=== PATIENT | female | born 1975 | race Caucasian/White ===

== ENCOUNTER 2020-04-04 20:35 | Emergency (ER) | payer OTHER, MEDICAID, SELFPAY ==
[2020-04-04 21:05] VITALS: BP 152/86; PULSE 77; RESP 15; TEMP 36.4; O2SAT 100; BMI 22.3
== END 2020-04-04 21:44 | disposition left against medical advice (07) ==
PROVIDERS: Emergency Provider Internal Medicine
DX: R10.9 Unspecified abdominal pain (principal)
CPT/HCPCS: 99282

== ENCOUNTER 2020-05-02 10:58 | Emergency (ER) | payer OTHER, MEDICAID, SELFPAY ==
[2020-05-02 11:14] VITALS: BP 117/76; PULSE 93; RESP 16; TEMP 36.6; O2SAT 97; BMI 22.3
--- NOTE | 2020-05-02 11:42 | XR_ITS ---
EXAMINATION: XR CHEST CLINICAL INFORMATION: Chest pain. Positive Covid COMPARISON: None TECHNIQUE: Frontal view of the chest was obtained. FINDINGS: The lungs are expanded with patchy groundglass opacities in both lower lobes and bilateral midlung regions suggestive of infiltrates. The upper lungs are clear. The heart size and pulmonary vascularity is normal. No gross bony abnormality seen. XR/XR chest 1V IMPRESSION: Patchy groundglass opacities in both lower lobes and bilateral midlung regions suggestive of infiltrates.
--- NOTE | 2020-05-02 11:42 | ECG_ITS ---
Test Reason : COVID+ DYSPNEA Blood Pressure : / mmHG Vent. Rate : 083 BPM Atrial Rate : 083 BPM P-R Int : 142 ms QRS Dur : 078 ms QT Int : 378 ms P-R-T Axes : 076 041 048 degrees QTc Int : 444 ms Normal sinus rhythm Normal ECG No previous ECGs available Referred By: Bin Juan Electronically Signed By:MARTA LA MD
[2020-05-02 12:00] VITALS: BP 122/78; PULSE 97; RESP 18; TEMP 36.6; O2SAT 99
[2020-05-02 12:30] LABS: MANUAL DIFF FLAG NO
--- NOTE | 2020-05-02 12:32 | ED_ITS ---
HPI - URI/Sore Throat General Chief Complaint: Upper Respiratory Symptoms Stated Complaint: covid+ diff breathing Time Seen by Provider: 05/02/20 11:41 Source: patient Mode of arrival: ambulatory Limitations: no limitations History of Present Illness HPI Narrative: States had positive COVID on April 23 has had URI symptoms which somewhat improved and then she developed body aches and cough with associated chest wall pain and tightness. MD elicited complaint: cough, rhinorrhea and nasal congestion Consistency: intermittent Severity: moderate Relieving factors: nothing Treatments prior to arrival: none Related Data Previous Rx's Medication Instructions Recorded albuterol sulfate 2 puff INHALATION Q4-6H PRN #8.5 g 05/02/20 azithromycin [Zithromax Z-Femi] 250 mg PO DAILY 5 Days #6 tab 05/02/20 prednisone 40 mg PO DAILY 5 Days #10 tab 05/02/20 Allergies Allergy/AdvReac Type Severity Reaction Status Date / Time No Known Allergies Allergy Verified 05/02/20 11:19 [No Known Allergies*] Review of Systems Review of Systems: Constitutional: No Weight loss, No Fever, positive Chills, No Night Sweats, No Fatigue, No Malaise ENT/Mouth: No Hearing loss, No Ear Pain, positive Nasal Congestion, No Sinus Pain, No Hoarseness, No sore throat, positive Rhinorrhea, No Swallowing Difficulty Eyes: No Eye Pain, No Swelling, No Redness, No Foreign Body, No Discharge, No Vision Changes Cardiovascular: No SOB, No Dyspnea on Exertion, No Orthopnea, No Edema, No Palpitations Respiratory: Positive Cough with associated chest wall pain, No Sputum, No Wheezing, No Smoke Exposure, No Dyspnea Gastrointestinal: No Nausea, No Vomiting, No Diarrhea, No Constipation, No abdominal Pain, No Hematochezia, No Melena Genitourinary: no irregular bleeding, No Dysuria, No Urinary Frequency, No Hematuria, No Urinary Incontinence, No Urgency, No Flank Pain, No Urinary Flow Changes, No Hesitancy Musculoskeletal: No joint pain, No Myalgias, No Joint Swelling Skin: No Skin Lesions, No rash Neuro: No Weakness, No Numbness, No Paresthesias, No Loss of Consciousness, No Dizziness, No Headache Psych: No Anxiety/Panic, No Depression, No SI/HI/AH/VH, No Social Issues, Heme/Lymph: No Bruising, No Bleeding,No Lymphadenopathy Endocrine: No Polyuria, No Polydipsia, No Temperature Intolerance Yes all other systems are reviewed and are negative [facility] Past Medical History Medical History (Updated 05/03/20 @ 00:01 by Christian Chaves) Anxiety Social History Social History Advance Directives: No Advance Directives Information Provided: No Physical Exam Vital Signs: Vital Signs: Last Vital Signs Temp 98 F 05/02/20 12:00 Pulse 97 05/02/20 12:00 Resp 18 05/02/20 12:00 BP 122/78 05/02/20 12:00 Pulse Ox 99 05/02/20 12:00 Body Mass Index 22.3 Reviewed Const: General: cooperative and healthy appearing; No acute distress or intoxicated appearing Nutritional Appearance: average body habitus Orientation/consciousness: patient oriented x3 HENMT: Head: Yes normal to inspection Ears: hearing grossly normal bilaterally Eyes: General: appearance normal, both eyes and all related structures Visual Guerra: normal visual guerra by confrontation Neck: Neck: Yes normal visual inspection, No positive Brudzinski's sign, No positive Kernig's sign and No tender Thyroid: Thyroid normal Chest: Chest palpation & inspection: normal inspection of the chest Resp: Other: Fits of dry bronchial cough Effort & Inspection: normal respiratory effort Auscultation: clear to auscultation bilaterally Cardio: Jugular venous distension: no JVD Rhythm: regular rhythm Heart sounds: S1 normal heart sound present and S2 normal heart sound present GI: Inspection: Yes normal to inspection Percussion: Yes normal to percussion Auscultation: normal bowel sounds : General: Yes no CVA tenderness Back/Spine/Pelvis: Back: no CVA tenderness Skin: General skin exam: no rashes or lesions noted Neuro: General: patient oriented x3 Extrem: General: Yes normal to inspection MDM - URI/Sore Throat MDM Narrative Medical decision making narrative: Feels better after neb. Ambulatory steady gait with pulse ox 100% on room air. Nontoxic appearing. Afebrile. With discharge with supportive care return follow-up instructions. Stable for discharge. Differential Diagnosis Differential diagnosis: Likely upper respiratory infection, viral infection (COVID-19, pneumonia), bronchitis and influenza; Unlikely croup, otitis media, sinusitis and pharyngitis Medical Records Attestation: I reviewed the patient's medical records. Lab Data Attestation: I reviewed the patient's lab results. Result diagrams: 05/02/20 12:22 05/02/20 12:22 Labs: Lab Results 05/02/20 05/02/20 05/02/20 Range/Units 12:22 12:22 12:22 WBC 6.7 (4.8-10.8) X10*3/uL RBC 4.05 L (4.20-5.50) X10*6/uL Hgb 12.4 (12.0-16.0) g/dl Hct 37.5 (37-47) % MCV 92.6 (80-98) fL MCH 30.6 (27.0-33.0) pg MCHC 33.1 (31.0-35.0) g/dl RDW 11.9 (11.0-16.0) % Plt Count 291 (160-400) X10*3/uL MPV 8.9 L (9.4-12.3) fL Immature Gran % (Auto) 0.6 H (0.0-0.4) % Neut % (Auto) 73.0 (45-73) % Lymph % (Auto) 17.3 L (20-40) % Gu[place]upe % (Auto) 7.5 (2-11) % Eos % (Auto) 1.3 (0-4) % Baso % (Auto) 0.3 (0-2) % Lymph # (Auto) 1.2 (1.2-4.9) X10*3/uL [place] # (Auto) 0.5 (0.1-1.2) X10*3/uL Eos # (Auto) 0.1 (0.0-0.4) X10*3/uL Baso # (Auto) 0.0 (0.0-0.2) X10*3/uL Abs Immat Gran (auto) 0.04 H (0.00-0.03) X10*3/uL Absolute Neuts (auto) 4.9 (2.0-8.3) X10*3/uL Absolute Nucleated RBC 0.000 (0.0-0.012) X10*3/uL Nucleated RBC % (auto) 0.0 (0.0-0.2) /100WBC PT 13.7 H (10.8-13.0) SEC INR 1.2 H (0.9-1.1) APTT 31.4 (24.1-38.0) SEC D-Dimer 253 NG/ML Sodium 138 (135-145) mmol/L Potassium 3.8 (3.3-5.1) mmol/L Chloride 104 (96-108) mmol/L Carbon Dioxide 25 (22-29) mmol/L Anion Gap 13 (12-20) BUN 11 (9-16) mg/dL Creatinine 0.77 (0.5-1.4) mg/dL Estim Creat Clear Calc 82.1 Estimated GFR > 60 Random Glucose 84 (60-115) mg/dL Calcium 8.5 (8.4-10.2) mg/dL Total Bilirubin 0.3 (0.0-1.0) mg/dL AST 17 (5-31) U/L ALT 17 (0-31) U/L Alkaline Phosphatase 107 (39-117) U/L Troponin I High Sens (<3.5-17.0) ng/L Total Protein 6.9 (6.5-8.0) g/dL Albumin 4.0 (3.5-5.0) g/dL 05/02/20 Range/Units 12:22 WBC (4.8-10.8) X10*3/uL RBC (4.20-5.50) X10*6/uL Hgb (12.0-16.0) g/dl Hct (37-47) % MCV (80-98) fL MCH (27.0-33.0) pg MCHC (31.0-35.0) g/dl RDW (11.0-16.0) % Plt Count (160-400) X10*3/uL MPV (9.4-12.3) fL Immature Gran % (Auto) (0.0-0.4) % Neut % (Auto) (45-73) % Lymph % (Auto) (20-40) % [place] % (Auto) (2-11) % Eos % (Auto) (0-4) % Baso % (Auto) (0-2) % Lymph # (Auto) (1.2-4.9) X10*3/uL [place] # (Auto) (0.1-1.2) X10*3/uL Eos # (Auto) (0.0-0.4) X10*3/uL Baso # (Auto) (0.0-0.2) X10*3/uL Abs Immat Gran (auto) (0.00-0.03) X10*3/uL Absolute Neuts (auto) (2.0-8.3) X10*3/uL Absolute Nucleated RBC (0.0-0.012) X10*3/uL Nucleated RBC % (auto) (0.0-0.2) /100WBC PT (10.8-13.0) SEC INR (0.9-1.1) APTT (24.1-38.0) SEC D-Dimer NG/ML Sodium (135-145) mmol/L Potassium (3.3-5.1) mmol/L Chloride (96-108) mmol/L Carbon Dioxide (22-29) mmol/L Anion Gap (12-20) BUN (9-16) mg/dL Creatinine (0.5-1.4) mg/dL Estim Creat Clear Calc Estimated GFR Random Glucose (60-115) mg/dL Calcium (8.4-10.2) mg/dL Total Bilirubin (0.0-1.0) mg/dL AST (5-31) U/L ALT (0-31) U/L Alkaline Phosphatase (39-117) U/L Troponin I High Sens < 3.5 (<3.5-17.0) ng/L Total Protein (6.5-8.0) g/dL Albumin (3.5-5.0) g/dL Imaging Data Chest x-ray: Radiologist's impression: [address] [id number] ReportSigned Patient: Nora Stewart MMR#: [id number]: 0 [id number]:[id number]/Sex: 44 / FADM Date: 05/02/20Loc: [address] Dr: Ordering Physician: Bin Juan NP Date of Service: 05/02/20 Procedure(s): XR chest 1V Accession Number(s): [id number] cc: Bin Juan EVENT SECURITY OFFICER~ EXAMINATION: XR CHEST CLINICAL INFORMATION: Chest pain. Positive Covid COMPARISON: None TECHNIQUE: Frontal view of the chest was obtained. FINDINGS: The lungs are expanded with patchy groundglass opacities in both lower lobes and bilateral midlung regions suggestive of infiltrates. The upper lungs are clear. The heart size and pulmonary vascularity is normal. No gross bony abnormality seen. XR/XR chest 1V IMPRESSION: Patchy groundglass opacities in both lower lobes and bilateral midlung regions suggestive of infiltrates. Dictated By:VIKA AMARO MDSigned By:<Electronically signed by VIKA AMARO MD in OV>05/02/20 1221 DD/ 1142TD/TT: [employer] [facility] [place] Discharge Clinical Impression: COVID-19, Bronchitis Patient Disposition: Home, Self-Care Instructions: Acute Bronchitis (ED), COVID-19 (Coronavirus Disease 2019) (ED) Additional Instructions: Drink plenty of fluids Take medication prescribed Self-isolation/discussing Quarantine Remain out of work until cleared by [facility] to return to work Return to emergency room if any concerns or worsening symptoms Thank you Prescriptions: New albuterol sulfate 90 mcg/actuation HFA aerosol inhaler 2 puff inhalation Q4-6H PRN (Reason: shortness of breath or wheezing) Qty: 8.5 RF: 0 azithromycin [Zithromax Z-Femi] 250 mg tablet 250 mg PO DAILY 5 Days Qty: 6 RF: 0 prednisone 20 mg tablet 40 mg PO DAILY 5 Days Qty: 10 RF: 0 Referrals: ED Physician,Generic [Physician] - 2 days Stand Alone Forms: Work/School Release Interventions: ED Discharge Assessment Last Done: 05/02/20 13:48 Discharge Date/Time: 05/02/20 13:49
[2020-05-02 12:33] LABS: Basophils Percent Auto 0.3 % (0-2); Eosinophils Absolute Auto 0.1 X10*3/uL (0.0-0.4); Eosinophils Percent Auto 1.3 % (0-4); Hematocrit 37.5 % (37-47); Hemoglobin 12.4 g/dl (12.0-16.0); Imm Gran Abs Auto 0.04 X10*3/uL (0.00-0.03); Imm Gran Pct Auto 0.6 % (0.0-0.4); Lymphocytes Absolute Auto 1.2 X10*3/uL (1.2-4.9); Lymphocytes Percent Auto 17.3 % (20-40); Mean Corpuscular HGB Conc 33.1 g/dl (31.0-35.0); Mean Corpuscular Hemoglobin 30.6 pg (27.0-33.0); Mean Corpuscular Volume 92.6 fL (80-98); Mean Platelet Volume 8.9 fL (9.4-12.3); Monocytes Absolute Auto 0.5 X10*3/uL (0.1-1.2); Monocytes Percent Auto 7.5 % (2-11); Neutrophils Absolute Auto 4.9 X10*3/uL (2.0-8.3); Platelet Count 291 X10*3/uL (160-400); Red Blood Count 4.05 X10*6/uL (4.20-5.50); Red Cell Distribution Width 11.9 % (11.0-16.0); White Blood Count 6.7 X10*3/uL (4.8-10.8)
[2020-05-02 12:47] LABS: INTERNATIONAL NORM RATIO 1.2 (0.9-1.1); Prothrombin Time 13.7 SEC (10.8-13.0)
[2020-05-02 12:50] LABS: D Dimer 253 NG/ML; Partial Thromboplastin Time 31.4 SEC (24.1-38.0)
[2020-05-02 12:59] LABS: Alanine Aminotransferase 17 U/L (0-31); Alkaline Phosphatase 107 U/L (39-117); Anion Gap 13 (12-20); Aspartate Amino Transferase 17 U/L (5-31); Bilirubin Total 0.3 mg/dL (0.0-1.0); Blood Urea Nitrogen 11 mg/dL (9-16); Calcium 8.5 mg/dL (8.4-10.2); Carbon Dioxide 25 mmol/L (22-29); Chloride 104 mmol/L (96-108); Creatinine Clr Calc Pharmacy 82.1; Estimated Glomerular Filt Rate > 60; Glucose Random 84 mg/dL (60-115); Potassium 3.8 mmol/L (3.3-5.1); Sodium 138 mmol/L (135-145); Total Protein 6.9 g/dL (6.5-8.0)
[2020-05-02 13:03] LABS: Troponin-I High Sensitivity < 3.5 ng/L (<3.5-17.0)
== END 2020-05-02 13:49 | disposition home or self-care (01) ==
PROVIDERS: Nurse Practitioner Primary Care; Emergency Provider Emergency Medicine
DX: U07.1 COVID-19 (principal); J40 Bronchitis, not specified as acute or chronic; Z79.899 Other long term (current) drug therapy
CPT/HCPCS: 36415; 71045; 80053; 84484; 85025; 85379; 85610; 85730; 93005; 99283

== ENCOUNTER 2020-06-13 13:51 | Emergency (ER) | payer OTHER, MEDICAID, SELFPAY ==
--- NOTE | ~2020-06-13 | XR_ITS ---
EXAMINATION: XR CHEST CLINICAL INFORMATION: Dyspnea, Covid in April COMPARISON: 05/02/2020 TECHNIQUE: 2 views of the chest were obtained. FINDINGS: Normal cardiomediastinal silhouette. Adequate expansion of lungs. No focal consolidation. Interval resolution of previously seen patchy airspace opacities. No pleural effusion or pneumothorax. No acute osseous abnormality. XR/XR chest 2V IMPRESSION: No acute disease within the chest.
[2020-06-13 14:24] VITALS: BP 155/106; PULSE 109; RESP 18; TEMP 36.6; O2SAT 98; BMI 23.3
--- NOTE | 2020-06-13 14:44 | ECG_ITS ---
Test Reason : SOB Blood Pressure : / mmHG Vent. Rate : 098 BPM Atrial Rate : 098 BPM P-R Int : 144 ms QRS Dur : 076 ms QT Int : 370 ms P-R-T Axes : 078 056 069 degrees QTc Int : 472 ms Normal sinus rhythm Possible Left atrial enlargement Borderline ECG When compared with ECG of 02-MAY-2020 12:14, No significant change was found Referred By: Gail Gerard Electronically Signed By:MARTA LA MD
--- NOTE | 2020-06-13 14:47 | ED.SOB ---
HPI - SOB/Dyspnea General Chief Complaint: Dyspnea Stated Complaint: SOB Time Seen by Provider: 06/13/20 14:29 Source: patient Mode of arrival: ambulatory History of Present Illness HPI Narrative: 44 y.o. F with PMH of anxiety presenting to the ED with SOB. Pt. states she was COVID positive on Apr 23, was seen in the ED and given rx for prednisone, albuterol and azithromycin. She had a follow up with her PCP a week later and had a repeat CXR which did not show improvement, so given inhaled steroids with albuterol and doxycyline. SHe has a follow up CXR on 06/25 but states she cannot wait until then. Recently her symptoms worsened, feeling SOB, fatigued, having no energy, chest pressure. Pressure initially was underneath her left breast and now is also on the right side. She was planning on going out to eat with her and two children (ages 6,7) but could not finish putting on makeup without having to sit down because of the SOB. SHe had a low grade fever of 100.2 on Sunday and took alieve, no recurrences. SHe denies abd pain, vomiting, diarrhea, leg swelling. No hx of DVT/PE. Nonsmoker. MD elicited complaint: shortness of breath Related Data Previous Rx's Medication Instructions Recorded albuterol sulfate 2 puff INHALATION Q4-6H PRN #8.5 g 05/02/20 azithromycin [Zithromax Z-Femi] 250 mg PO DAILY 5 Days #6 tab 05/02/20 prednisone 40 mg PO DAILY 5 Days #10 tab 05/02/20 Allergies Allergy/AdvReac Type Severity Reaction Status Date / Time No Known Allergies Allergy Verified 05/02/20 11:19 [No Known Allergies*] Review of Systems Constitutional: Constitutional: Reports fatigue and Reports fever(s) Eyes: Eyes: Reports no additional eye complaints ENT: Denies sore throat Cardiovascular: Cardiovascular: Reports chest pain, Denies syncope, Reports dyspnea and Reports dyspnea on exertion Respiratory: Respiratory: Reports dyspnea and Reports dyspnea on exertion Gastrointestinal: Gastrointestinal: Denies abdominal pain, Denies diarrhea and Denies vomiting Genitourinary: Comments: no dysuria or hematuria Musculoskeletal: Musculoskeletal: Reports no additional musculoskeletal complaints Neurologic: Denies syncope Psychiatric: Psychiatric: Reports anxiety Endocrine: Endocrine: Reports fatigue Hematologic/Lymphatic: Hematologic/Lymphatic: Denies easy bleeding and Denies easy bruising Allergic/Immunologic: Allergic/Immunologic: Reports no additional allergic/immunologic complaints [facility] Past Medical History Medical History Anxiety Social History Social History Alcohol intake: never Smoked in Last 30 Days: No Use of substances other than those prescribed or required for medical reasons: No Advance Directives: No Advance Directives Information Provided: No Physical Exam Vital Signs: Vital Signs: Last Vital Signs Temp 97.5 F 06/13/20 16:22 Pulse 96 06/13/20 16:22 Resp 18 06/13/20 16:22 BP 146/95 H 06/13/20 16:22 Pulse Ox 97 06/13/20 16:22 Body Mass Index 23.3 Const: Other: sitting upright, very anxious HENMT: Head: Yes atraumatic Eyes: Pupils: Equal, round and reactive pupils present Neck: Neck: Yes trachea midline and Yes supple Chest: Chest palpation & inspection: normal inspection of the chest Resp: Effort & Inspection: normal respiratory effort and able to speak in complete sentences Auscultation: clear to auscultation bilaterally Cardio: Other: no peripheral edema Rate: regular rate Rhythm: regular rhythm GI: Inspection: No distended Palpation (GI): Soft to palpation and nontender Back/Spine/Pelvis: Other: full ROM Skin: Other: warm Rashes: no rashes Neuro: Other: A&O x4 General: gait normal Cranial nerves: Yes Equal, round and reactive pupils present Extrem: General: Yes normal to inspection Psych: Appearance: well kempt Course Course Course Narrative: Tachycardia resolved, BP remains elevated pt. states this is due to her anxiety. Her labs are unremarkable including d dimer, troponin and BNP. CXR is negative. I discussed these results with her. Could be due to post COVID. WIll encourage PCP follow up. She has albuterol inhaler at home, instructed to use this. Pt. feels comfortable with this discharge plan. MDM - SOB/Dyspnea MDM Narrative Medical decision making narrative: 44 y.o. F presenting to the ED with CP and SOB, COVID positive in April VS significant for hypertension, tachycardia 109, not toxic appearing, hemodynamically stable WIll plan for basic labs to assess for leukocytosis, anemia, renal dysfunction. WIll check for electrolyte abnormalities, including Ca, Mg level. Will evaluate BNP level, however no dyspnea on exam, no peripheral edema. Will check troponin for possible myositis, ACS. ACS less likely since her HEART score is low, risk factor is familial history (provides broad cardiac history on her paternal side), pt. is a nonsmoker. PE considered given her COVID exposure will send for d dimer. No limb swelling to suggest DVT, will defer US. WIll check CXR for pleural effusion, PNA. Abdomen is soft, nontender, not peritonitic. Will monitor on the cardiac monitor technician case discussed with Dr. Alcocer Lab Data Result diagrams: 06/13/20 15:00 06/13/20 15:00 Labs: Lab Results 06/13/20 06/13/20 06/13/20 Range/Units 15:00 15:00 15:00 WBC 9.1 (4.8-10.8) X10*3/uL RBC 4.20 (4.20-5.50) X10*6/uL Hgb 13.0 (12.0-16.0) g/dl Hct 38.7 (37-47) % MCV 92.1 (80-98) fL MCH 31.0 (27.0-33.0) pg MCHC 33.6 (31.0-35.0) g/dl RDW 13.0 (11.0-16.0) % Plt Count 317 (160-400) X10*3/uL MPV 9.1 L (9.4-12.3) fL Immature Gran % (Auto) 0.1 (0.0-0.4) % Neut % (Auto) 73.4 H (45-73) % Lymph % (Auto) 18.0 L (20-40) % Baldwin % (Auto) 4.2 (2-11) % Eos % (Auto) 4.0 (0-4) % Baso % (Auto) 0.3 (0-2) % Lymph # (Auto) 1.6 (1.2-4.9) X10*3/uL Baldwin # (Auto) 0.4 (0.1-1.2) X10*3/uL Eos # (Auto) 0.4 (0.0-0.4) X10*3/uL Baso # (Auto) 0.0 (0.0-0.2) X10*3/uL Abs Immat Gran (auto) 0.01 (0.00-0.03) X10*3/uL Absolute Neuts (auto) 6.7 (2.0-8.3) X10*3/uL Absolute Nucleated RBC 0.000 (0.0-0.012) X10*3/uL Nucleated RBC % (auto) 0.0 (0.0-0.2) /100WBC D-Dimer < 200 NG/ML Sodium 137 (135-145) mmol/L Potassium 3.8 (3.3-5.1) mmol/L Chloride 103 (96-108) mmol/L Carbon Dioxide 25 (22-29) mmol/L Anion Gap 13 (12-20) BUN 12 (9-16) mg/dL Creatinine 0.78 (0.5-1.4) mg/dL Estim Creat Clear Calc 81.1 Estimated GFR > 60 Random Glucose 105 (60-115) mg/dL Calcium 9.3 D (8.4-10.2) mg/dL Magnesium 1.9 (1.6-2.6) mg/dL Troponin I High Sens (<3.5-17.0) ng/L B-Natriuretic Peptide (<100) pg/mL 06/13/20 Range/Units 15:01 WBC (4.8-10.8) X10*3/uL RBC (4.20-5.50) X10*6/uL Hgb (12.0-16.0) g/dl Hct (37-47) % MCV (80-98) fL MCH (27.0-33.0) pg MCHC (31.0-35.0) g/dl RDW (11.0-16.0) % Plt Count (160-400) X10*3/uL MPV (9.4-12.3) fL Immature Gran % (Auto) (0.0-0.4) % Neut % (Auto) (45-73) % Lymph % (Auto) (20-40) % Baldwin % (Auto) (2-11) % Eos % (Auto) (0-4) % Baso % (Auto) (0-2) % Lymph # (Auto) (1.2-4.9) X10*3/uL Baldwin # (Auto) (0.1-1.2) X10*3/uL Eos # (Auto) (0.0-0.4) X10*3/uL Baso # (Auto) (0.0-0.2) X10*3/uL Abs Immat Gran (auto) (0.00-0.03) X10*3/uL Absolute Neuts (auto) (2.0-8.3) X10*3/uL Absolute Nucleated RBC (0.0-0.012) X10*3/uL Nucleated RBC % (auto) (0.0-0.2) /100WBC D-Dimer NG/ML Sodium (135-145) mmol/L Potassium (3.3-5.1) mmol/L Chloride (96-108) mmol/L Carbon Dioxide (22-29) mmol/L Anion Gap (12-20) BUN (9-16) mg/dL Creatinine (0.5-1.4) mg/dL Estim Creat Clear Calc Estimated GFR Random Glucose (60-115) mg/dL Calcium (8.4-10.2) mg/dL Magnesium (1.6-2.6) mg/dL Troponin I High Sens < 3.5 (<3.5-17.0) ng/L B-Natriuretic Peptide 25 (<100) pg/mL ECG Data Attestation: I personally reviewed and interpreted this ECG as follows: Prior ECG tracings: available for review Interpretation: rate [address] elevation QTC 472 no STEMI Discharge Plan Discharge Clinical Impression: Dyspnea Patient Disposition: Home, Self-Care Instructions: Dyspnea (ED) Additional Instructions: Please call your doctor tomorrow to discuss today's visit. Please return to the emergency department if your symptoms worsen, increased trouble breathing, chest pain, abdominal pain, leg swelling, dizziness, weakness, fevers, or any other concerning symptoms. Continue using your albuterol inhaler as scheduled for your breathing. Your blood tests today including a troponin, BNP, d dimer were all normal. Your chest xray was normal. Prescriptions: No Action albuterol sulfate 90 mcg/actuation HFA aerosol inhaler 2 puff inhalation Q4-6H PRN (Reason: shortness of breath or wheezing) Qty: 8.5 RF: 0 azithromycin [Zithromax Z-Femi] 250 mg tablet 250 mg PO DAILY 5 Days Qty: 6 RF: 0 prednisone 20 mg tablet 40 mg PO DAILY 5 Days Qty: 10 RF: 0
[2020-06-13 15:09] LABS: MANUAL DIFF FLAG NO
--- NOTE | 2020-06-13 15:10 | PC.NURSE ---
patient a&ox3, iv inserted, labs drawn, ekg performed, [employer] sales consultant nsr 90s, vss, will continue to monitor.
[2020-06-13 15:14] LABS: Basophils Percent Auto 0.3 % (0-2); Eosinophils Absolute Auto 0.4 X10*3/uL (0.0-0.4); Hematocrit 38.7 % (37-47); Imm Gran Abs Auto 0.01 X10*3/uL (0.00-0.03); Imm Gran Pct Auto 0.1 % (0.0-0.4); Lymphocytes Absolute Auto 1.6 X10*3/uL (1.2-4.9); Mean Corpuscular HGB Conc 33.6 g/dl (31.0-35.0); Mean Corpuscular Volume 92.1 fL (80-98); Mean Platelet Volume 9.1 fL (9.4-12.3); Monocytes Absolute Auto 0.4 X10*3/uL (0.1-1.2); Monocytes Percent Auto 4.2 % (2-11); Neutrophils Absolute Auto 6.7 X10*3/uL (2.0-8.3); Neutrophils Percent Auto 73.4 % (45-73); Platelet Count 317 X10*3/uL (160-400); White Blood Count 9.1 X10*3/uL (4.8-10.8)
[2020-06-13 15:24] LABS: D Dimer < 200 NG/ML
[2020-06-13 15:37] LABS: Anion Gap 13 (12-20); Blood Urea Nitrogen 12 mg/dL (9-16); Calcium 9.3 mg/dL (8.4-10.2); Carbon Dioxide 25 mmol/L (22-29); Chloride 103 mmol/L (96-108); Creatinine Clr Calc Pharmacy 81.1; Estimated Glomerular Filt Rate > 60; Glucose Random 105 mg/dL (60-115); Magnesium 1.9 mg/dL (1.6-2.6); Potassium 3.8 mmol/L (3.3-5.1); Sodium 137 mmol/L (135-145)
[2020-06-13 15:55] LABS: B Type Natriuretic Peptide 25 pg/mL (<100); Troponin-I High Sensitivity < 3.5 ng/L (<3.5-17.0)
[2020-06-13 16:22] VITALS: BP 146/95; PULSE 96; RESP 18; TEMP 36.4; O2SAT 97
== END 2020-06-13 16:50 | disposition home or self-care (01) ==
PROVIDERS: Physician Assistant Medical; Emergency Provider Internal Medicine; PCP Physician Assistant Medical
DX: R06.00 Dyspnea, unspecified (principal); F41.9 Anxiety disorder, unspecified; R00.0 Tachycardia, unspecified; Z86.16 Personal history of COVID-19
CPT/HCPCS: 36415; 71046; 80048; 83735; 83880; 84484; 85025; 85379; 93005; 99284

== ENCOUNTER 2021-07-23 09:28 | Emergency (ER) | payer OTHER, MEDICAID, SELFPAY ==
--- NOTE | ~2021-07-23 | US_ITS ---
EXAMINATION: US PELVIS CLINICAL INFORMATION: Left pelvic pain. Status post surgical resection of right ovary and right fallopian tube at age 17. COMPARISON: CT of the abdomen and pelvis done on 10/23/2019. TECHNIQUE: Ultrasound of the pelvis is performed using both transabdominal and transvaginal transducers along with Doppler. Transvaginal imaging is performed due to inadequate visualization transabdominally. FINDINGS: Uterus: The uterus is anteverted and measures 7.3 x 4.0 x 4.9 cm. The double wall endometrial thickness is 0.8 mm. The uterus is smooth in contour and has normal myometrial echogenicity. No visible fibroid. Incidental note is made of small volume fluid within the cervical spinal canal. Adnexa: The left ovary is visualized. There is normal color flow to the adnexa. There is no ovarian torsion. There is no pelvic ascites or fluid collection. Arterial as well as venous flow to the left ovary are well-maintained. Left ovary measures 5.8 x 3.4 x 3.2 cm. 33 mL. Superimposed dominant 2.3 x 2.2 x 2.4 cm follicle is present. No evidence of any right-sided adnexal mass. US/US pelvic and transvaginal IMPRESSION: 1. The etiology for left hemipelvic pain is not evident on these images. 2. Morphologically normal-appearing uterus and left ovary and no evidence of any free fluid.
[2021-07-23 09:34] VITALS: BP 128/66; PULSE 80; RESP 18; TEMP 36.2; O2SAT 99; BMI 23.1
--- NOTE | 2021-07-23 10:13 | ED_ITS ---
HPI - Abdominal Pain General Chief Complaint: Abdominal Pain Stated Complaint: Abd pain sent by urgent care Time Seen by Provider: 07/23/21 10:06 Source: patient Mode of arrival: ambulatory Limitations: no limitations History of Present Illness HPI narrative: left ower quadrant abdominal pain after intercourse MD elicited complaint: abdominal pain Pertinent past history: none Onset (ago): day(s) (4 Days) Pain Consistency: constant Location: none Quality: aching Radiation: LLQ Migration to: no migration Exacerbating factors: nothing Relieving factors: nothing Associated symptoms: denies other symptoms Related Data Previous Rx's Medication Instructions Recorded albuterol sulfate 90 mcg/actuation 2 puff INHALATION Q4-6H PRN #8.5 g 05/02/20 aerosol inhaler azithromycin 250 mg tablet 250 mg PO DAILY 5 Days #6 tab 05/02/20 (Zithromax Z-Femi) prednisone 20 mg tablet 40 mg PO DAILY 5 Days #10 tab 05/02/20 Allergies Allergy/AdvReac Type Severity Reaction Status Date / Time No Known Allergies Allergy Verified 05/02/20 11:19 [No Known Allergies*] Review of Systems Review of Systems Yes all other systems are reviewed and are negative Constitutional: Reports no additional constitutional complaints Reports system reviewed and no additional complaints, except as documented Cardiovascular: Reports no additional cardiovascular complaints Respiratory: Reports no additional respiratory complaints Gastrointestinal: Reports no additional gastrointestinal complaints Musculoskeletal: Reports no additional musculoskeletal complaints [facility] Past Medical History [facility] Narrative: denies any medical problem. She is status post right oophorectomy and salpyngectomy Medical History Anxiety Social History Social History Alcohol intake: never Advance Directives: No Physical Exam ED Vital Signs: Vital Signs - 24 hr 07/23/21 09:34 Temperature 97.2 F Pulse Rate 80 Respiratory Rate 18 Blood Pressure 128/66 Pulse Oximetry 99 BMI result Body Mass Index 23.1 Const General: cooperative Nutritional Appearance: average body habitus and well nourished HENMT Other: wnl Neck Neck: Yes normal visual inspection Chest Chest palpation & inspection: normal inspection of the chest Resp Effort & Inspection: normal respiratory effort and able to speak in complete sentences Auscultation: clear to auscultation bilaterally Cardio Jugular venous distension: no JVD Rate: regular rate Rhythm: regular rhythm GI Other: tenderness left ower quadrant Inspection: Yes normal to inspection Palpation (GI): Soft to palpation and Tenderness to palpation present (GI) Skin General skin exam: no rashes or lesions noted Course Reevaluation(s) Reevaluation #1: examined at this time she is feeling much better, ultrasound shows no left ovarian torsion, no left ovarian cyst. Shared decision-making with the patient discussed the possibility of doing a CT scan, patient wants to hold off on the CT scanner for now she will go home she will return if worse. She is comforta ble with the plan. At this point will discharge the patient home MDM - Abdominal Pain Lab Data Result diagrams: 07/23/21 10:56 07/23/21 10:56 Labs: Lab Results 07/23/21 07/23/21 Range/Units 10:56 10:56 WBC 8.8 (4.8-10.8) X10*3/uL RBC 4.39 (4.20-5.50) X10*6/uL Hgb 13.4 (12.0-16.0) g/dl Hct 40.1 (37.0-47.0) % MCV 91.3 (80.0-98.0) fL MCH 30.5 (27.0-33.0) pg MCHC 33.4 (31.0-35.0) g/dl RDW 12.5 (11.0-16.0) % Plt Count 289 (160-400) X10*3/uL MPV 8.7 L (9.4-12.3) fL Immature Gran % (Auto) 0.3 (0.0-0.4) % Neut % (Auto) 83.9 H (45-73) % Lymph % (Auto) 11.3 L (20-40) % [place] % (Auto) 3.7 (2-11) % Eos % (Auto) 0.6 (0-4) % Baso % (Auto) 0.2 (0-2) % Lymph # (Auto) 1.0 L (1.2-4.9) X10*3/uL [place] # (Auto) 0.3 (0.1-1.2) X10*3/uL Eos # (Auto) 0.1 (0.0-0.4) X10*3/uL Baso # (Auto) 0.0 (0.0-0.2) X10*3/uL Abs Immat Gran (auto) 0.03 (0.00-0.03) X10*3/uL Absolute Neuts (auto) 7.4 (2.0-8.3) x10*3/uL Absolute Nucleated RBC 0.000 (0.0-0.012) X10*3/uL Nucleated RBC % (auto) 0.0 (0.0-0.2) /100WBC Sodium 136 (135-145) mmol/L Potassium 4.2 (3.3-5.1) mmol/L Chloride 101 (96-108) mmol/L Carbon Dioxide 26 (22-29) mmol/L Anion Gap 13 (12-20) BUN 14 (9-16) mg/dL Creatinine 0.87 (0.5-1.4) mg/dL Estim Creat Clear Calc 72.0 Estimated GFR > 60 Random Glucose 95 (60-115) mg/dL Calcium 10.1 D (8.4-10.2) mg/dL Total Bilirubin 0.5 (0.0-1.0) mg/dL AST 14 (5-31) U/L ALT 9 (0-31) U/L Alkaline Phosphatase 61 D (39-117) U/L Total Protein 7.7 (6.5-8.0) g/dL Albumin 4.6 (3.5-5.0) g/dL Beta HCG, Quant < 2 mIU/mL Discharge Plan Discharge Clinical Impression: Abdominal pain Patient Disposition: Home, Self-Care Instructions: Abdominal Pain (ED) Additional Instructions: follow-up with your primary care physician on Sunday return if you worse vomiting or fever any concern. I discussed with you the possibility of the CT scan but you decided to hold off for now Prescriptions: No Action albuterol sulfate 90 mcg/actuation HFA aerosol inhaler 2 puff inhalation Q4-6H PRN (Reason: shortness of breath or wheezing) Qty: 8.5 0RF azithromycin [Zithromax Z-Femi] 250 mg tablet 250 mg PO DAILY 5 Days Qty: 6 0RF prednisone 20 mg tablet 40 mg PO DAILY 5 Days Qty: 10 0RF Referrals: Physician,Unknown J [Primary Care Provider] - 2 days Stand Alone Forms: Work/School Release Interventions: ED Discharge Assessment Last Done: 07/23/21 12:06 Discharge Date/Time: 07/23/21 12:06
[2021-07-23] MEDS: Ketorolac Tromethamine 15 MG/ML VIAL IVPUSH (10:58)
[2021-07-23 11:04] LABS: MANUAL DIFF FLAG NO
[2021-07-23 11:07] LABS: Basophils Percent Auto 0.2 % (0-2); Eosinophils Absolute Auto 0.1 X10*3/uL (0.0-0.4); Eosinophils Percent Auto 0.6 % (0-4); Hematocrit 40.1 % (37.0-47.0); Hemoglobin 13.4 g/dl (12.0-16.0); Imm Gran Abs Auto 0.03 X10*3/uL (0.00-0.03); Imm Gran Pct Auto 0.3 % (0.0-0.4); Lymphocytes Percent Auto 11.3 % (20-40); Mean Corpuscular HGB Conc 33.4 g/dl (31.0-35.0); Mean Corpuscular Hemoglobin 30.5 pg (27.0-33.0); Mean Corpuscular Volume 91.3 fL (80.0-98.0); Mean Platelet Volume 8.7 fL (9.4-12.3); Monocytes Absolute Auto 0.3 X10*3/uL (0.1-1.2); Monocytes Percent Auto 3.7 % (2-11); Neutrophils Absolute Auto 7.4 x10*3/uL (2.0-8.3); Neutrophils Percent Auto 83.9 % (45-73); Platelet Count 289 X10*3/uL (160-400); Red Blood Count 4.39 X10*6/uL (4.20-5.50); Red Cell Distribution Width 12.5 % (11.0-16.0); White Blood Count 8.8 X10*3/uL (4.8-10.8)
--- NOTE | 2021-07-23 11:10 | PC.NURSE ---
Pt comes in from home with complaints of pelvic pain and bleeding since Sunday after having intercourse. Denies chance of or urinary S/S. IV established, medicated as per MAR orders. Awaiting further orders, US results. Call garrido within reach, will continue to monitor
[2021-07-23 11:30] LABS: HCG Quantitative < 2 mIU/mL
[2021-07-23 11:34] LABS: Alanine Aminotransferase 9 U/L (0-31); Albumin Level 4.6 g/dL (3.5-5.0); Alkaline Phosphatase 61 U/L (39-117); Anion Gap 13 (12-20); Aspartate Amino Transferase 14 U/L (5-31); Bilirubin Total 0.5 mg/dL (0.0-1.0); Blood Urea Nitrogen 14 mg/dL (9-16); Calcium 10.1 mg/dL (8.4-10.2); Carbon Dioxide 26 mmol/L (22-29); Chloride 101 mmol/L (96-108); Estimated Glomerular Filt Rate > 60; Glucose Random 95 mg/dL (60-115); Potassium 4.2 mmol/L (3.3-5.1); Sodium 136 mmol/L (135-145); Total Protein 7.7 g/dL (6.5-8.0)
== END 2021-07-23 12:06 | disposition home or self-care (01) ==
PROVIDERS: Emergency Provider Emergency Medicine
DX: N83.201 Unspecified ovarian cyst, right side (principal); R10.32 Left lower quadrant pain; Z79.899 Other long term (current) drug therapy
CPT/HCPCS: 36415; 76830; 76856; 80053; 84702; 85025; 96374; 99284; J1885

== ENCOUNTER 2021-08-05 21:43 | Emergency (ER) | payer OTHER, MEDICAID, SELFPAY | END 2021-08-05 22:13 | disposition left against medical advice (07) | LOC: HO.ED 22:11 | PROVIDERS: Emergency Provider Emergency Medicine | DX: R10.10 Upper abdominal pain, unspecified (principal) ==